=== PATIENT | male | born 1990 | race Caucasian/White ===

== ENCOUNTER 2016-07-07 07:09 | Emergency (ER) | payer OTHER, SELFPAY | END 2016-07-07 10:10 | disposition home or self-care (01) | LOC: ER 07:09 | DX: J20.9 Acute bronchitis, unspecified (principal); E03.9 Hypothyroidism, unspecified; I10 Essential (primary) hypertension; F32.9 Major depressive disorder, single episode, unspecified; F41.9 Anxiety disorder, unspecified; Z87.01 Personal history of pneumonia (recurrent); R05 Cough; R50.9 Fever, unspecified; R53.1 Weakness; Z79.899 Other long term (current) drug therapy | CPT/HCPCS: 71020; 87070; 87400; 87880; 99283 ==